=== PATIENT | female | born 1985 | race Caucasian/White ===

== ENCOUNTER → 2019-10-02 | Outpatient (CLI) | payer OTHER ==
[~2019-10-02] MED LIST: ALBU2.5V11 NEB; ALBU8.5H5 INH; BIRTH CONTROL PO; SERT100T PO
== END | disposition home or self-care (01) ==
LOC: RAD 15:25
PROVIDERS: ATTEND Physician Assistant Surgical
DX: R22.42 Localized swelling, mass and lump, left lower limb (principal); G89.18 Other acute postprocedural pain